=== PATIENT | male | born 1975 | race Caucasian/White ===

== ENCOUNTER → 2024-05-21 | Outpatient (CLI) | payer MEDICARE ==
--- NOTE | 2024-05-21 22:05 | MR ---
EXAMINATION TYPE: MR knee RT wo con DATE OF EXAM: 05/21/2024 COMPARISON: NONE HISTORY: Right knee pain and swelling x2 months, fell down stairs TECHNIQUE: Multiplanar, multisequence images of the knee is performed without IV contrast. FINDINGS: MEDIAL MENISCUS: Fraying and increased signal posterior horn medial meniscus extends to articular flor face. LATERAL MENISCUS: Anterior and posterior horns are intact without tear. CRUCIATE LIGAMENTS: The anterior and posterior cruciate ligaments are intact and unremarkable. COLLATERAL LIGAMENTS: The medial collateral ligament and lateral collateral ligament complex are inta ct and unremarkable. EXTENSOR MECHANISM: Visualized quadriceps and patellar tendons are intact. EFFUSION: Large size suprapatellar joint effusion. POPLITEAL CYST: No popliteal/castañeda cyst. TRICOMPARTMENT SPACES: Complete tear of the lateral retinaculum of the patella axial image 27. Latera l tilting of the patella is seen. Moderate narrowing of the patellofemoral compartment. Moderate narr owing lateral tibiofemoral compartment. Mild tricompartment spurring. 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 Cartilaginous loss lateral tibiofemoral compartments BONE MARROW SIGNAL: Linear diminished T1 signal through the patella sagittal image 24 with heterogene ous increased T2 signal involving the lateral tibiofemoral compartment predominantly in the lateral a spect of the tibial plateau. OTHER: No additional significant abnormality is appreciated. IMPRESSION: 1. Full-thickness tear of the lateral retinaculum of the patella with lateral tilting or subluxation of the patella. 2. Suspect nondisplaced acute fracture of the patella. 3. Abnormal bone marrow edema greatest involving the lateral tibiofemoral compartment. 4. Full-thickness tear posterior horn of medial meniscus. 5. Large suprapatellar joint effusion. 6. Tricompartmental degenerative changes that are at least moderate involving patellofemoral and late ral tibiofemoral compartments as detailed above.
== END | disposition home or self-care (01) ==
LOC: RADMRIMAIN 14:37
PROVIDERS: ATTEND Orthopaedic Surgery
DX: M23.8X1 Other internal derangements of right knee (principal); M23.306 Other meniscus derangements, unspecified meniscus, right knee; M17.11 Unilateral primary osteoarthritis, right knee; S83.241A Other tear of medial meniscus, current injury, right knee, initial encounter